=== PATIENT | female | born 1965 | race Caucasian/White ===

== ENCOUNTER → 2016-12-09 | Outpatient (CLI) | payer BC ==
--- NOTE | 2016-12-12 09:16 | MM ---
Reason for exam: screening (asymptomatic). Last mammogram was performed 1 year and 4 months ago. History: Patient is postmenopausal. Took hormonal contraceptives for 2 years. Physical Findings: A clinical breast exam by your physician is recommended on an annual basis and results should be correlated with mammographic findings. MG Screening Mammo w CAD Bilateral CC and MLO view(s) were taken. Prior study comparison: July 29, 2015, bilateral MG screening mammo w CAD. September 09, 2013, bilateral digital screening mammo w/CAD. The breast tissue is almost entirely fat. There is no discrete abnormality. No significant changes when compared with prior studies. ASSESSMENT: Negative, BI-RAD 1 RECOMMENDATION: Routine screening mammogram of both breasts in 1 year.
== END | disposition home or self-care (01) ==
LOC: RADMAMWWP 13:33
PROVIDERS: ATTEND Family Medicine
DX: Z12.31 Encounter for screening mammogram for malignant neoplasm of breast (principal)

== ENCOUNTER → 2017-08-21 | Outpatient (CLI) | payer BC ==
[2017-08-21 17:35] LABS: Basophils % (A) 0 %; CH 29.4; CHCM 32.9; Eosinophils # (A) 0.1 k/uL (0-0.7); Eosinophils % (A) 1 %; HCT 43.7 % (34.0-46.0); HGB 14.6 gm/dL (11.4-16.0); Luc # (Auto) 0.21; Luc % (Auto) 2; Lymphocytes # (A) 3.4 k/uL (1.0-4.8); Lymphocytes % (A) 38 %; MCH 29.9 pg (25.0-35.0); MCHC 33.3 g/dL (31.0-37.0); MCV 89.8 fL (80.0-100.0); Mean Platelet Volume 6.9; Monocytes # (A) 0.4 k/uL (0-1.0); Monocytes % (A) 5 %; Neutrophils # (A) 4.7 k/uL (1.3-7.7); Neutrophils % (A) 54 %; RBC 4.87 m/uL (3.80-5.40); RDW 12.7 % (11.5-15.5); WBC 8.8 k/uL (3.8-10.6)
== END | disposition home or self-care (01) ==
LOC: LABWHC1 16:48
PROVIDERS: ATTEND Obstetrics & Gynecology
DX: Z01.810 Encounter for preprocedural cardiovascular examination (principal); Z01.812 Encounter for preprocedural laboratory examination
CPT/HCPCS: 36415; 85025; 93005

== ENCOUNTER 2017-08-29 06:34 | Day surgery (SDC) | payer BC ==
[2017-08-23 14:46] VITALS: BMI 31.3
--- NOTE | 2017-08-28 20:31 | P.HPOB ---
History of Present Illness H&P Date: 08/28/17 Chief Complaint: Postmenopausal bleeding, endometrial thickening This is a 52-year-old female 5 para 4 who presents for dilation and curettage with hysteroscopy secondary to postmenopausal bleeding and endometrial thickening on ultrasound. She had a sudden onset of bright red blood noted on her cassandra-pad on June 132016 and then another spot approximately 24 hours later. She states she usually has a dark brown discharge on her pad. She denies any pelvic discomfort but does complain of some cramping. The bleeding was light and spotty in nature. She did have intercourse approximately 3 days before the bleeding started. Her pelvic ultrasound on June 292016 showed a uterus measuring 9.1 x 4.4 x 6.3 cm an endometrial stripe thickness of 9 mm. Neither ovary was clearly seen. She has been experiencing menopausal symptoms including hot flashes, vaginal dryness, vaginal irritation, breast tenderness, and fluid retention. She denies any night sweats. She also complains of fatigue and weight changes. Obstetrical history: . History of 4 vaginal deliveries and 1 miscarriage. Gynecologic history: No history of sexual transmitted diseases. She has had a tubal ligation. Her last menstrual period was at age 48. Social history: She is . She works at [employer]. She is a Religion and will not allow any blood products. Review of Systems Constitutional: Reports weight gain, Denies chills, Denies fever Eyes: denies blurred vision, denies pain Cardiovascular: Denies chest pain, Denies shortness of breath Respiratory: Denies cough Gastrointestinal: Denies abdominal pain Genitourinary: Reports abnormal vaginal bleeding Menstruation: Reports post hysterectomy Musculoskeletal: Denies myalgias Integumentary: Denies pruritus, Denies rash Neurological: Denies numbness, Denies weakness Psychiatric: Denies anxiety, Denies depression Past Medical History Past Medical History: GERD/Reflux Additional Past Medical History / Comment(s): POST MENOPAUSAL BLEEDING History of Any Multi-Drug Resistant Organisms: None Reported Past Surgical History: Orthopedic Surgery, Tubal Ligation Additional Past Surgical History / Comment(s): D & C. AMPUTATION LT INDEX FINGER. EXPLORATORY LAPAROTOMY FOR ENDOMETRIOSIS Past Anesthesia/Blood Transfusion Reactions: No Reported Reaction Past Psychological History: No Psychological Hx Reported Smoking Status: Never smoker Past Alcohol Use History: None Reported Past Drug Use History: None Reported - Past Family History Mother Family Medical History: No Reported History Father Family Medical History: Myocardial Infarction (MS) Medications and Allergies Home Medications Medication Instructions Recorded Confirmed Type Multivitamins, Thera [Multivitamin 1 each PO DAILY 08/23/17 08/23/17 History (formulary)] Omeprazole Magnesium [Prilosec OTC] 20 mg PO DAILY 08/23/17 08/23/17 History Vitamin E (Dl,Tocopheryl Acet) 400 unit PO DAILY 08/23/17 08/23/17 History [Vitamin E] Allergies Allergy/AdvReac Type Severity Reaction Status Date / Time No Known Allergies Allergy Verified 08/23/17 14:40 Exam Osteopathic Statement: *. No significant issues noted on an osteopathic structural exam other than those noted in the History and Physical/Consult. HEENT: Within normal limits Heart: Regular rate and rhythm Lungs: Clear to auscultation bilaterally Abdomen: Soft, nontender Pelvic exam: Grade 2 cystocele is noted. Uterus is anteverted and nontender with no adnexal masses or tenderness palpated. Extremities: Negative Sonal's Assessment and Plan (1) Postmenopausal bleeding Status: Acute Code(s): N95.0 - POSTMENOPAUSAL BLEEDING SNOMED Code(s): 03936739 (2) Thickened endometrium Status: Acute Code(s): R93.8 - ABNORMAL FINDINGS ON DIAGNOSTIC IMAGING OF BODY STRUCTURES SNOMED Code(s): 021269485 Plan: Proceed with dilation and curettage with hysteroscopy. I have discussed the risks, benefits, and alternative therapies for the above- mentioned procedure and for both sedation/anesthesia as well as necessary blood products administration, if indicated, as they pertain to this patient. The patient has indicated her understanding and acceptance of the risks and procedures discussed.
[~2017-08-29 06:34] MED LIST: DEXAMETHASONE SOD PHOSPHATE 10 MG/ML 1 ML VIAL IV ONE; HYDROmorphone 0.5 MG/0.5 ML SYRINGE IVP PRN; LACTATED RINGERS 1,000 ML IV SCH; MIDAZOLAM 2 MG/2 ML VIAL IV PRN; ONDANSETRON 4 MG/2 ML VIAL IVP ONE; Pre Op ABX Message 1 EACH MISC MISCELLANE ONE; SCOPOLAMINE 1.5MG/72HR PATCH TRANSDERM ONE
[2017-08-29] MEDS ORDERED: LIDOCAINE 1% 20 ML VIAL (10MG/ML) FOR IV START INTRADERMA ONE (07:23)
[2017-08-29] MEDS ORDERED: MIDAZOLAM 2 MG/2 ML VIAL ONE (07:30)
[2017-08-29] MEDS ORDERED: LIDOCAINE 1% INJ 10MG/ML (20 ML MDV) ONE (07:30)
[2017-08-29] MEDS ORDERED: fentaNYL (PF) 50 MCG/ML 2 ML AMP ONE (07:30)
[2017-08-29] MEDS ORDERED: PROPOFOL 10 MG/ML 20 ML VIAL IV ONE (07:30)
[2017-08-29] MEDS ORDERED: SUCCINYLCHOLINE CHLORIDE 100 MG/5 ML SYR IV ONE (07:30)
--- NOTE | 2017-08-29 07:57 | P.OP ---
Date of Procedure: 08/29/17 Preoperative Diagnosis: Postmenopausal bleeding Endometrial thickening Postoperative Diagnosis: Same Procedure(s) Performed: Dilation and curettage with hysteroscopy Anesthesia: JEANNE Surgeon: Jenae Brenner Estimated Blood Loss (ml): 2 Pathology: other (Endometrial curettings) Condition: stable Disposition: same day Indications for Procedure: This is a 52-year-old female 5 para 4 who presents for dilation and curettage with hysteroscopy secondary to postmenopausal bleeding and endometrial thickening on ultrasound. She had a sudden onset of bright red blood noted on her cassandra-pad on June 132016 and then another spot approximately 24 hours later. She states she usually has a dark brown discharge on her pad. She denies any pelvic discomfort but does complain of some cramping. The bleeding was light and spotty in nature. She did have intercourse approximately 3 days before the bleeding started. Her pelvic ultrasound on June 292016 showed a uterus measuring 9.1 x 4.4 x 6.3 cm an endometrial stripe thickness of 9 mm. Neither ovary was clearly seen. She has been experiencing menopausal symptoms including hot flashes, vaginal dryness, vaginal irritation, breast tenderness, and fluid retention. She denies any night sweats. She also complains of fatigue and weight changes. Operative Findings: Uterus is anteverted and sounded to 9 cm. Cervix is sounded to 3 cm. No specific adnexal masses are palpated. Upon hysteroscopy very does appear to be too flattened polyp type areas on the anterior border. Otherwise the endometrium appears very atrophic. There is a dark blue blood vessel constellation in a circular pattern in the right fundal region. Both tubal ostia are visualized. Minimal endometrial curettings are obtained. Description of Procedure: The patient is taken to the operating room where she is placed in the dorsal lithotomy position. She is prepped and draped in the normal sterile fashion. Bladder is drained with a catheter and then removed. Examination is performed under anesthesia. She is noted to have approximately grade 2-3 cystocele, and approximately grade 1-2 uterine prolapse. Uterus is anteverted with no adnexal masses palpated. A weighted speculum was placed in the vagina and she is placed in slight Trendelenburg position. A right angle retractor is used to visualize the cervix. The anterior lip of the cervix is grasped with a single- tooth tenaculum. Next the cervix is sounded to 3 cm and the uterus is sounded to 9 cm. Next the cervix is gently dilated with Tellez dilators until a hysteroscope could be passed. Hysteroscopy is performed using normal saline. The above noted findings are made and pictures are taken. Next the hysteroscope was withdrawn and the cervix is gently dilated further. Next polyp forceps are introduced and a small amount of polypoid tissue is obtained. Next a medium-size sharp curet was introduced and sharp curettage is performed until a gritty texture is noted. Minimal further tissue is obtained. Next the specimen is removed from the field. The single-tooth tenaculum is removed from the anterior lip of the cervix. No bleeding is noted. All instruments are removed from the vagina. All sponge and needle counts are correct. The patient is then taken to recovery room.
[2017-08-29] MEDS ORDERED: KETOROLAC 30 MG/ML 1 ML VIAL IVP ONE (08:07)
[2017-08-29 08:09] VITALS: TEMP 97.5
[2017-08-29 08:52] VITALS: RESP 20
[2017-08-29 09:23] VITALS: BP 134/73; PULSE 81
== END 2017-08-29 09:52 | disposition home or self-care (01) ==
LOC: OR 06:34
PROVIDERS: ATTEND Obstetrics & Gynecology
DX: N84.0 Polyp of corpus uteri (principal); N95.0 Postmenopausal bleeding; R93.8 Abnormal findings on diagnostic imaging of other specified body structures; Z98.51 Tubal ligation status; K21.9 Gastro-esophageal reflux disease without esophagitis; Z79.899 Other long term (current) drug therapy
CPT/HCPCS: 88305; 58558; J2250; J1100; J2405; J2001; J3010; J1885; J0330; J2704

== ENCOUNTER → 2018-08-01 | Outpatient (CLI) | payer BC ==
--- NOTE | 2018-08-01 12:52 | XR ---
EXAMINATION TYPE: XR hand limited LT DATE OF EXAM: 08/01/2018 COMPARISON: NONE HISTORY: 53-year-old female genital pain throughout the thoracic and fourth digit, either synovitis a nd tenosynovitis. TECHNIQUE: 2 views FINDINGS: Prior amputation of the second finger at the level of the DIP joint. The osteotomy margin appears wel l demarcated. Moderate osteophytic change at the third and fourth PIP joints and mild elsewhere throu ghout the third, fourth, and fifth digits. Mild degenerative change at the first CMC joint. No acute fracture, subluxation, or dislocation. IMPRESSION: 1. 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 Otherwise, scattered mild osteo arthritic spurring within the third through fifth fingers. 2. Prior partial amputation of the index finger.
== END | disposition home or self-care (01) ==
LOC: RADXRMAIN 11:00
PROVIDERS: ATTEND Family Medicine
DX: M19.042 Primary osteoarthritis, left hand (principal); Z89.022 Acquired absence of left finger(s)

== ENCOUNTER → 2018-08-09 | Outpatient (CLI) | payer BC ==
--- NOTE | 2018-08-09 15:40 | US ---
EXAMINATION TYPE: US thyroid st tissue head/neck DATE OF EXAM: 08/09/2018 COMPARISON: 09/09/2011 CLINICAL HISTORY: E04.1 Thyroid Nodule. GLAND SIZE: Right Lobe: 5.0 x 1.3 x 1.7 cm Overall Parenchyma: heterogenous Left Lobe: 3.8 x 0.8 x 1.3 cm Overall Parenchyma: heterogeneous Isthmus Thickness: 0.4 cm NODULES RIGHT: # of nodules measured on right: 3 1. 0.7 X 0.6 x 0.9 cm hypoechoic solid nodule at the lower pole with well-defined margins; . This nodule is and shows intranodular vascularity. Prior size: no previous 2. 0.7 X 0.5 x 0.6 cm hypoechoic solid nodule at the mid/lower pole with well-defined margins; . Th is nodule is wider than tall and shows intranodular vascularity. Prior size: no previous 3. 1.2 X 0.6 x 0.9 cm hypoechoic solid nodule at the upper pole with well-defined margins; . This n odule is wider than tall and shows intranodular vascularity. Prior size: 1.1 cm LEFT: # of nodules measured on left: 1. 0.8 X 0.5 x 0.6 cm hypoechoic solid nodule at the lower pole with well-defined margins; . This nodule is wider than tall and shows intranodular vascularity. Prior size:no previous 2. 0.6 X 0.4 x 0.5 cm hypoechoic solid nodule at the mid pole with well-defined margins; . This nod ule is wider than tall and shows intranodular vascularity. Prior size: no previous ISTHMUS: # of nodules measured in the isthmus: 2 1. 0.8 X 0.5 x 0.8 cm hypoechoic solid nodule at the lower pole with well-defined margins; . This nodule is wider than tall and shows intranodular vascularity. Prior size: no previous 2. 0.6 X 0.3 x 0.6 cm hypoechoic solid nodule at the upper pole with well-defined margins; . This nodule is wider than tall and shows intranodular vascularity. Prior size: no previous Bilateral neck scanned, no evidence of lymphadenopathy. Largest nodules measured on bilateral thyroid lobes. Multiple sub centimeter nodules also noted. Pre vious exam on review does have subcentimeter nodules which were not mentioned or measured. The larges t nodule within the right lobe thyroid is essentially stable over the interval. IMPRESSION: 1. Multinodular goiter.
--- NOTE | 2018-08-10 12:15 | MM ---
Reason for exam: screening (asymptomatic). Last mammogram was performed 1 year and 8 months ago. History: Patient is postmenopausal. Took hormonal contraceptives for 2 years. Physical Findings: A clinical breast exam by your physician is recommended on an annual basis and results should be correlated with mammographic findings. MG Screening Mammo w CAD Bilateral CC and MLO view(s) were taken. Prior study comparison: December 09, 2016, bilateral MG screening mammo w CAD. July 29, 2015, bilateral MG screening mammo w CAD. There are scattered fibroglandular densities. There is chronic nodularity in the left breast. No significant changes when compared with prior studies. ASSESSMENT: Benign, BI-RAD 2 RECOMMENDATION: Routine screening mammogram of both breasts in 1 year.
== END | disposition home or self-care (01) ==
LOC: RADMAMWWP 11:52
PROVIDERS: ATTEND Family Medicine
DX: Z12.31 Encounter for screening mammogram for malignant neoplasm of breast (principal); E04.2 Nontoxic multinodular goiter
CPT/HCPCS: 76536; 77067

== ENCOUNTER 2018-10-10 09:49 | Day surgery (SDC) | payer BC ==
[2018-10-05 15:52] VITALS: BMI 29.7
--- NOTE | 2018-10-10 08:46 | P.GSHP ---
History of Present Illness H&P Date: 10/10/18 CHIEF COMPLAINT: Colon screen HISTORY OF PRESENT ILLNESS: The patient is a 53-year-old female who presents for colon screen. Lower endoscopy was offered for further evaluation and management. PAST MEDICAL HISTORY: Please see list. PAST SURGICAL HISTORY: Please see list. MEDICATIONS: Please see list. ALLERGIES: Please see list. SOCIAL HISTORY: No illicit drug use FAMILY HISTORY: No reports of Crohn disease or ulcerative colitis. REVIEW OF ORGAN SYSTEMS: CONSTITUTIONAL: No reports of fevers or chills. PHYSICAL EXAM: VITAL SIGNS: Stable GENERAL: Well-developed pleasant in no acute distress. HEENT: No scleral icterus. Extraocular movements grossly intact. Moist buccal mucosa. NECK: Supple without lymphadenopathy. CHEST: Unlabored respirations. Equal bilateral excursions. CARDIOVASCULAR: Regular rate and rhythm. Distal 2+ pulses. ABDOMEN: Soft, nontender, nondistended. MUSCULOSKELETAL: No clubbing, cyanosis, or edema. ASSESSMENT: 1. Colon screen. PLAN: 1. Recommend proceeding with a lower endoscopy Past Medical History Past Medical History: GERD/Reflux History of Any Multi-Drug Resistant Organisms: None Reported Past Surgical History: Orthopedic Surgery, Tubal Ligation Additional Past Surgical History / Comment(s): D&C,amputation lt index finger Past Anesthesia/Blood Transfusion Reactions: No Reported Reaction, Family History of Problems w/ Anesthesia Additional Past Anesthesia/Blood Transfusion Reaction / Comment(s): mother and grandmother ponv Smoking Status: Never smoker - Past Family History Mother Family Medical History: No Reported History Medications and Allergies Home Medications Medication Instructions Recorded Confirmed Type Omeprazole Magnesium [Prilosec OTC] 20 mg PO DAILY 08/23/17 10/05/18 History Cholecalciferol [Vitamin D3] 1,000 unit PO DAILY 10/05/18 10/05/18 History Soy Isofla/Blk Cohosh/Mag Bark 155 mg PO DAILY 10/05/18 10/05/18 History [Estroven 155 mg Capsule] Allergies Allergy/AdvReac Type Severity Reaction Status Date / Time No Known Allergies Allergy Verified 10/05/18 15:44
[~2018-10-10 09:49] MED LIST changes: -DEXAMETHASONE SOD PHOSPHATE 10 MG/ML 1 ML VIAL IV ONE; -HYDROmorphone 0.5 MG/0.5 ML SYRINGE IVP PRN; +LIDOCAINE 1% 20 ML VIAL (10MG/ML) FOR IV START INTRADERMA PRN; -MIDAZOLAM 2 MG/2 ML VIAL IV PRN; -ONDANSETRON 4 MG/2 ML VIAL IVP ONE; -Pre Op ABX Message 1 EACH MISC MISCELLANE ONE; -SCOPOLAMINE 1.5MG/72HR PATCH TRANSDERM ONE
[2018-10-10 10:21] VITALS: RESP 16; TEMP 99.1
[2018-10-10] MEDS ORDERED: PROPOFOL 10 MG/ML 20 ML VIAL IV ONE (10:53)
[2018-10-10 11:24] VITALS: PULSE 80
--- NOTE | 2018-10-10 11:39 | P.PCN ---
Date of Procedure: 10/10/18 Description of Procedure: PREOPERATIVE DIAGNOSIS: Colonoscopy screening. Family history colon polyps POSTOPERATIVE DIAGNOSIS: Colonoscopy screening. Family history colon polyps OPERATION: Colonoscopy to the ileocecal valve and appendiceal orifice. SURGEON: Rupali Laguerre MD. ANESTHESIA: MAC. INDICATIONS: The patient is a 53-year-old female who presents for her first colonoscopy screening. Benefits and risks were described and informed consent was obtained. DESCRIPTION OF PROCEDURE: The patient had undergone Gatorade, MiraLAX and Dulcolax prep. She had been brought into the operating room and laid in the left lateral decubitus position. After adequate intravenous sedation, the rectum was examined with 2% lidocaine jelly. No external hemorrhoids were encountered. The rectal tone was within normal limits. No lesions were palpated in the rectal vault. An Olympus colonoscope was advanced until the ileocecal valve and appendiceal orifice were clearly viewed. The prep was excellent with clear visualization of the mucosal folds. The scope was removed with visualization of each mucosal fold. No scattered diverticulosis was encountered. No colonic polyps were found. No evidence of focal colitis was found. Retroflexion of the scope demonstrated no internal hemorrhoids. The colon was desufflated. The patient had tolerated the procedure well. Withdrawal time was over 6 minutes. FINDINGS: No internal hemorrhoids. No external prolapsed hemorrhoids. No arteriovenous malformations. No adenomatous polyps. No focal colitis. RECOMMENDATIONS: Lower endoscopy in 5 years, 2022, family history of colon polyps Plan - Discharge Summary New Discharge Prescriptions: No Action Omeprazole Magnesium [Prilosec OTC] 20 mg PO DAILY Cholecalciferol [Vitamin D3] 1,000 unit PO DAILY Soy Isofla/Blk Cohosh/Mag Bark [Estroven 155 mg Capsule] 155 mg PO DAILY Discharge Medication List Omeprazole Magnesium [Prilosec OTC] 20 mg PO DAILY 08/23/17 [History] Cholecalciferol [Vitamin D3] 1,000 unit PO DAILY 10/05/18 [History] Soy Isofla/Blk Cohosh/Mag Bark [Estroven 155 mg Capsule] 155 mg PO DAILY [History] Follow up Appointment(s)/Referral(s): Rupali Laguerre MD [STAFF PHYSICIAN] - As Needed Patient Instructions/Handouts: *[facility] - (Anesthesia) Endoscopy Discharge Instructions Activity/Diet/Wound Care/Special Instructions: Repeat colonoscopy 5 years, 2022
[2018-10-10 11:45] VITALS: BP 135/78
== END 2018-10-10 11:58 | disposition home or self-care (01) ==
LOC: ORWHC2ENDO 09:49
PROVIDERS: ATTEND Surgery Plastic and Reconstructive Surgery
DX: Z12.11 Encounter for screening for malignant neoplasm of colon (principal); Z83.71 Family history of colonic polyps; K21.9 Gastro-esophageal reflux disease without esophagitis; Z79.899 Other long term (current) drug therapy
CPT/HCPCS: J2704; G0105

== ENCOUNTER → 2019-10-24 | Outpatient (CLI) | payer BC ==
--- NOTE | 2019-10-25 14:12 | MM ---
Reason for exam: screening (asymptomatic). Last mammogram was performed 1 year and 2 months ago. History: Patient is postmenopausal. Took hormonal contraceptives for 2 years. Physical Findings: A clinical breast exam by your physician is recommended on an annual basis and results should be correlated with mammographic findings. MG Screening Mammo w CAD Bilateral CC and MLO view(s) were taken. Prior study comparison: August 09, 2018, bilateral MG screening mammo w CAD. December 09, 2016, bilateral MG screening mammo w CAD. There is chronic nodularity in the left breast. No significant changes when compared with prior studies. ASSESSMENT: Benign, BI-RAD 2 RECOMMENDATION: Routine screening mammogram of both breasts in 1 year.
== END | disposition home or self-care (01) ==
LOC: RADMAMWWP 16:26
PROVIDERS: ATTEND Family Medicine
DX: Z12.31 Encounter for screening mammogram for malignant neoplasm of breast (principal)
CPT/HCPCS: 77067

== ENCOUNTER → 2020-12-30 | Outpatient (CLI) | payer BC ==
--- NOTE | 2021-01-01 11:36 | MM ---
Reason for exam: screening (asymptomatic). Last mammogram was performed 1 year and 2 months ago. History: Patient is postmenopausal. Family history of breast cancer in maternal grandmother. Took hormonal contraceptives for 2 years. Physical Findings: A clinical breast exam by your physician is recommended on an annual basis and results should be correlated with mammographic findings. MG 3D Screening Mammo W/Cad Bilateral CC and MLO view(s) were taken. Prior study comparison: October 24, 2019, bilateral MG screening mammo w CAD. August 09, 2018, bilateral MG screening mammo w CAD. There are scattered fibroglandular densities. There are benign appearing round linear calcifications in the left breast. There is chronic nodularity in the right anterior breast and left breast upper outer quadrant. There is no discrete abnormality. ASSESSMENT: Benign, BI-RAD 2 RECOMMENDATION: Routine screening mammogram of both breasts in 1 year.
== END ==
LOC: RADMAMWWP 15:16
PROVIDERS: ATTEND Family Medicine
DX: Z12.31 Encounter for screening mammogram for malignant neoplasm of breast (principal)
CPT/HCPCS: 77063; 77067

== ENCOUNTER → 2021-12-31 | Outpatient (CLI) | payer BC ==
--- NOTE | 2021-12-31 10:36 | US ---
EXAMINATION TYPE: US pelvis complete transvag DATE OF EXAM: 12/31/2021 COMPARISON: NONE CLINICAL HISTORY: R102. Pelvic pain TECHNIQUE: Transvaginal (TV) and Transabdominal (TA) . Transabdominal sonographic images of the pel vis were acquired. Transvaginal sonographic images were medically necessary to better assess the fol lowing anatomy: endometrium and ovaries. Date of LMP: postmenopausal, no HRT. EXAM MEASUREMENTS: Uterus: 7.3 x 2.8 x 5.5 cm Endometrial Stripe: 1.1 cm Right Ovary: not definitely identified Left Ovary: 2.1 x 1.9 x 1.5 cm 1. Uterus: Retroverted wnl 2. Endometrium: thickened 3. Right Ovary: not definitely seen 4. Left Ovary: wnl 5. Bilateral Adnexa: wnl 6. Posterior cul-de-sac: no free fluid IMPRESSION: Thickened endometrium is nonspecific. Nonvisualization of the right ovary.
--- NOTE | 2021-12-31 11:48 | US ---
EXAMINATION TYPE: US thyroid st tissue head/neck DATE OF EXAM: 12/31/2021 COMPARISON: US 2018 CLINICAL HISTORY: E041 NONTOXIC SINGLE THYROID MODULE. GLAND SIZE: Right Lobe: 6.0 x 1.4 x 1.8 cm Overall Parenchyma: homogenous Left Lobe: 3.8 x 1.1 x 1.0 cm Overall Parenchyma: homogeneous Isthmus Thickness: 0.2 cm NODULES RIGHT: # of nodules measured on right: 1 1. 1.2 X 0.6 x 0.9 cm, mid lateral, solid or almost completely solid, hypoechoic nodule, which is w ider than tall, with smooth margins, without echogenic foci. Prior size: 1.2 x 0.6 x 0.9 cm LEFT: # of nodules measured on left: 0 ISTHMUS: # of nodules measured in the isthmus: 0 Bilateral neck scanned, no evidence of lymphadenopathy. Multiple bilateral subcentimeter nodules IMPRESSION: Multiple nonspecific subcentimeter nodules identified.
--- NOTE | 2022-01-03 09:14 | MM ---
Reason for exam: screening (asymptomatic). Last mammogram was performed 1 year ago. History: Patient is postmenopausal. Family history of breast cancer in maternal grandmother. Took hormonal contraceptives for 2 years. Physical Findings: A clinical breast exam by your physician is recommended on an annual basis and results should be correlated with mammographic findings. MG 3D Screening Mammo W/Cad Bilateral CC and MLO view(s) were taken. Prior study comparison: December 30, 2020, bilateral MG 3d screening mammo w/cad. October 24, 2019, bilateral MG screening mammo w CAD. There are benign appearing round calcifications in the left breast. There is chronic nodularity bilaterally. There is no discrete abnormality. ASSESSMENT: Benign, BI-RAD 2 RECOMMENDATION: Routine screening mammogram of both breasts in 1 year.
== END | disposition home or self-care (01) ==
LOC: RADUSWWP 09:47
PROVIDERS: ATTEND Family Medicine
DX: Z12.31 Encounter for screening mammogram for malignant neoplasm of breast (principal); E04.2 Nontoxic multinodular goiter; R93.89 Abnormal findings on diagnostic imaging of other specified body structures; Z78.0 Asymptomatic menopausal state; Z80.3 Family history of malignant neoplasm of breast
CPT/HCPCS: 76536; 76830; 76856; 77063; 77067

== ENCOUNTER → 2024-01-19 | Outpatient (CLI) | payer BC ==
--- NOTE | 2024-01-22 15:09 | MM ---
Reason for Exam: Screening (asymptomatic). Last screening mammogram was performed 12 month(s) ago. Patient History: Menarche at age 13. First Full-Term at age 22. Postmenopausal. Patient used Hormonal Contraceptives for 2 years. Risk Values: Parvin 5 year model risk: 1.2%. NCI Lifetime model risk: 6.9%. Prior Study Comparison: 12/30/2020 Bilateral Screening Mammogram, [facility]. 12/31/2021 Bilateral Screening Mammogram, [facility]. 01/04/2023 Bilateral MG 3D screening mammo w/cad, [facility]. Tissue Density: The breasts are almost entirely fatty. Findings: Analyzed By CAD. There is no suspicious group of microcalcifications or new suspicious mass. Overall Assessment: Negative, BI-RAD 1 Management: Screening Mammogram of both breasts in [address] [facility] will attempt to contact patient to return for supplemental views and ultrasound if indicated. Patient should continue monthly self-breast exams. A clinical breast exam by your physician is recommended on an annual basis. This exam should not preclude additional follow-up of suspicious palpable abnormalities. Note on Parvin scores and lifetime risk: 1. A Parvin score greater than 3% is considered moderate risk. If this is the case, consider specialist referral to assess eligibility for a risk reducing agent. 2. If overall lifetime risk for the development of breast cancer is 20% or higher, the patient may qualify for future screening with alternating mammogram and breast MRI. Electronically signed and approved by: Jack Mtz DO
== END | disposition home or self-care (01) ==
LOC: RADMAMWWP 14:27
PROVIDERS: ATTEND Family Medicine
DX: Z12.31 Encounter for screening mammogram for malignant neoplasm of breast (principal); Z78.0 Asymptomatic menopausal state
CPT/HCPCS: 77063; 77067

== ENCOUNTER → 2025-01-29 | Outpatient (CLI) | payer BC ==
--- NOTE | 2025-01-29 15:03 | XR ---
EXAMINATION TYPE: XR knee complete LT DATE OF EXAM: 01/29/2025 2:54 PM INDICATION: Patient age:Female; 60 years old; Reason for study: M25.562 PAIN IN LEFT KNEE; [facility]. pain COMPARISON: None. TECHNIQUE: The Left knee(s) was examined in Frontal, lateral and oblique projections. FINDINGS: No evidence of any acute osseous pathology, soft tissue swelling, or joint effusion is no audra. Mild medial tibiofemoral joint space narrowing with marginal osteophytosis. IMPRESSION: 1. No acute osseous pathology. 2. Mild medial tibiofemoral osteoarthritic changes. [facility], , 01/29/2025 3:01 PM
== END | disposition home or self-care (01) ==
LOC: RADXRMAIN 14:36
PROVIDERS: ATTEND Family Medicine
DX: M17.12 Unilateral primary osteoarthritis, left knee (principal)